=== PATIENT | female | born 1975 | race Native Hawaiian/Other Pacific Islander ===

== ENCOUNTER 2022-04-24 11:21 | Emergency (ER) | payer BC, SELFPAY ==
[2022-04-24 11:37] VITALS: BP 127/87; PULSE 106; RESP 16; TEMP 36.3; O2SAT 98
--- NOTE | 2022-04-24 12:10 | W.ED.EYEPROB ---
HPI - Eye Problem General: Chief complaint: Eye Problems Stated complaint: left eye injury Time Seen by Provider: 04/24/22 12:10 History of Present Illness: Ms. Daniel is a 46-year-old lady without significant past medical history presenting to the emergency department due to eye concern. She noticed red eye busted blood vessel on the bottom part of her eye yesterday and subsequently has developed right eye clear watering and drainage. She attempted covering her eye however is now developed left eye pain as well. Notes worse symptoms with light exposure. Also endorses worse right eye pain with light in the left eye. Associated nausea but no vomiting. Denies history of migraine headaches. Denies any known trauma or history of similar. No other specific changes in health, exacerbating, or alleviating factors identified. Onset (ago): day(s) Onset description: sudden Duration: constant Location: right eye Eye Symptoms: redness, pain and photophobia Mechanism: none Severity: severe Associated symptoms: Reports nausea Review of Systems General: Reports: 10 or more systems reviewed and unremarkable except in HPI and below GI: Reports: nausea PFSH ED PFSH: Medical History Diabetes Surgical History No significant past surgical history Physical Exam Const: COMMON NORMALS: alert GENERAL APPEARANCE: cooperative and well developed HENMT: COMMON NORMALS: normocephalic and atraumatic HEAD & SCALP: normocephalic and atraumatic Eye: SCLERA: sclerae normal OTHER: Eye conjunctival injection. Abrasion noted to the cornea somewhat linear in nature roughly at the 7 o'clock position relative to the pupil. IOP OS 12 OD 10 Neck/C-Spine: COMMON NORMALS: supple GENERAL: Yes trachea midline Resp: COMMON NORMALS: clear to auscultation bilaterally EFFORT & INSPECTION: Yes able to speak in complete sentences AUSCULTATION: clear to auscultation bilaterally Cardio: COMMON NORMALS: regular rate and regular rhythm RATE: regular rate RHYTHM: regular rhythm GI: COMMON NORMALS: Soft to palpation PALPATION: Yes Soft to palpation and No Tenderness to palpation present (GI) Extremity: GENERAL: Yes normal exam except as noted and No edema Neuro: COMMON NORMALS: moves all extremities SENSORIUM/ORIENTATION: Yes alert and No Orientation impaired Psych: COMMON NORMALS: mental status grossly normal and Normal thought process present MOOD & AFFECT: Yes anxious THOUGHT PROCESS: Normal thought process present Course Vital Signs: Vital signs: Vital Signs Temperature 97.3 F L 04/24/22 11:37 Pulse Rate 106 H 04/24/22 11:37 Respiratory Rate 16 04/24/22 13:52 Blood Pressure 127/87 04/24/22 11:37 Pulse Oximetry 98 04/24/22 11:37 MDM - Eye Problem Medical Decision Making 46-year-old lady presenting to the emergency department for concern. Exam as noted upon pressures, evidence of diffuse subconjunctival injection with localized conjunctival hemorrhage, given consensual photophobia there is likely evidence for anterior uveitis in addition to a corneal abrasion. I do not see evidence of acute ocular emergency requiring immediate ophthalmologic intervention or inpatient management. Discussed case with ophthalmology on-call and patient will be instructed to follow-up tomorrow. Upon reassessment patient is improved. Eyedrops instilled. The results of ED evaluation were discussed with the patient including prescriptions and/or symptomatic cares (if applicable) including appropriate and responsible use, followup plan, and return precautions. The patient verbalized understanding and felt safe for discharge. Medical Records I reviewed the patient's medical records. Lab Data I reviewed the patient's lab results. Discharge Plan Discharge Patient Disposition: Home Clinical Impression: Corneal abrasion, Anterior uveitis Condition: Stable Prescriptions: New Maxitrol 3.5mg/mL-10,000 unit/mL-0.1 % drops,suspension 2 drp ophthalmic (eye) Q4H Qty: 5 0RF Cyclogyl 1 % drops 1 drp ophthalmic (eye) TID Qty: 2 0RF Rx Instructions: compress lacrimal sac for 1-2 minutes after instillation oxycodone 5 mg tablet 5 mg PO Q4H PRN (Reason: pain) Qty: 10 0RF Discharge Orders: Discharge ED (Routine); Ordered 04/24/22 Ordered By: Alex Martin Referrals: Kiran Hartman MD [Primary Care Provider] - Discharge Diet: Usual diet Discharge Activity: Increase activity as tolerated Patient Instructions: Iritis (ED), Corneal Abrasion (ED), Opioid Safety, Pain Management Activity Restrictions/Additional Instructions: Thank you for visiting the emergency department. You were seen evaluated for eye pain. The most likely cause of your symptoms is related to corneal abrasion and uveitis. This will be treated with topical eyedrops. I will also prescribe oxycodone for uncontrolled pain. Please use this cautiously. Please call [facility] in the morning for follow-up. Return to the emergency department for uncontrolled symptoms or anything else that you are concerned about a feel needs emergency department evaluation. Coding Level of Care Code ED Student Services Counselor for Luz Davalos Exam Comprehensive
[2022-04-24] MEDS: fluorescein 1 mg Strip EYE-LEFT (12:50)
[2022-04-24] MEDS: tetracaine 0.5% Op Soln 4 mL Btl 1 DROP EYE-BOTH (12:50)
[2022-04-24 13:52] VITALS: RESP 16
[2022-04-24] MEDS: oxyCODONE 5 mg IR Tab/Cap PO (13:52)
[2022-04-24] MEDS: cyclopentolate 1% Op Soln 2 mL Btl 1 DROP EYE-RIGHT (13:53)
[2022-04-24] MEDS: neomycin-poly-dex Op 5 mL Btl 2 DROP EYE-RIGHT (13:54)
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
== END 2022-04-24 13:55 | disposition home or self-care (01) ==
PROVIDERS: Emergency Provider Emergency Medicine; PCP Family Medicine
DX: S05.00XA Injury of conjunctiva and corneal abrasion without foreign body, unspecified eye, initial encounter (principal); X58.XXXA Exposure to other specified factors, initial encounter; H20.9 Unspecified iridocyclitis
CPT/HCPCS: 99283

== ENCOUNTER 2022-06-05 23:32 | Emergency (ER) | payer BC, SELFPAY ==
[2022-06-05 23:36] VITALS: BMI 23.0
[2022-06-05 23:44] VITALS: BP 140/91; PULSE 123; RESP 16; TEMP 37.1; O2SAT 97
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
[2022-06-05] MEDS: HYDROcodone-acetaminophen 5-325 mg Tablet 1 TAB PO (23:56)
== END 2022-06-06 00:53 | disposition home or self-care (01) ==
PROVIDERS: Emergency Provider Emergency Medicine; PCP Family Medicine
DX: S09.8XXA Other specified injuries of head, initial encounter (principal); E11.9 Type 2 diabetes mellitus without complications; Y04.2XXA Assault by strike against or bumped into by another person, initial encounter
CPT/HCPCS: 70450; 99284

== ENCOUNTER 2022-07-18 18:51 | Emergency (ER) | payer BC, OTHER, SELFPAY ==
[2022-07-18 18:56] VITALS: BP 116/75; PULSE 102; RESP 20; TEMP 36.6; O2SAT 97; BMI 22.1
--- NOTE | 2022-07-18 19:18 | USCV_ITS ---
Lashonda Daniel Age: 47 Gender: F : 1975 Exam Date: 07/18/2022 19:49 Ordering Phys: Drake Burton Technologist: ALKA Exam Location: [facility] [place] Indication: RIGHT calf and foot chronic pain x 1yr since dx neuropathy. No history of DVT per patient. HISTORY: RIGHT calf and foot chronic pain x 1yr since dx neuropathy. No history of DVT per patient. PROCEDURES: Venous duplex imaging was performed in only the right lower extremity. The following venous structures were evaluated: common femoral vein, profunda vein, proximal portion of the greater saphenous vein, superficial femoral vein, and the popliteal vein. FINDINGS: Normal 2-D Doppler and augmentation and compressibility throughout the lower extremity venous structures. Additional imaging through the proximal calf veins also reveals no thrombus. Limited evaluation of the greater saphenous vein is patent with no thrombus. CONCLUSIONS No DVT right lower extremity. Dr. Beba Adams DO (Electronically Signed) Final Date: 19 July 2022 07:59 S
--- NOTE | 2022-07-18 19:19 | W.ED.EXTPRO ---
HPI - Extremity Problem General: Chief complaint: Extremity Problem,Nontraumatic Stated complaint: Rt Side Back Of Thigh\Pain Time Seen by Provider: 07/18/22 19:04 History of Present Illness: Patient is a 47-year-old female who comes to the ED with lower extremity pain. Symptoms started approximately week ago. She states that she got out of bed suddenly and then felt a sharp pain in her right leg. She rates the pain an 8 out of 10. Pain is in the back of right thigh and down into right calf. Denies any other fall or trauma to cause injury. Pain has not gotten any better over the past week and is only getting worse. Denies any chest pain, shortness of breath or hemoptysis. Associated symptoms: Deny chest pain, fever(s) or rash Review of Systems Const: Denies: fever(s), chills or fatigue Eyes: Denies: change in vision or eye discomfort ENMT: Denies: throat pain, odynophagia, nasal discharge or nasal congestion Card: Denies: chest pain, palpitations, edema, swelling of feet/ankles, dyspnea on exertion or orthopnea Resp: Denies: dyspnea, productive cough or non-productive cough GI: Denies: abdominal pain, nausea, vomiting, diarrhea, constipation or hematochezia : Denies: flank pain, dysuria or hematuria Musc: Reports: extremity pain (Right leg); Denies: neck pain, back pain or extremity swelling Skin/Breast: Denies: rash or new lesions Neuro: Denies: headache(s), numbness in extremities or weakness in extremities FORMERLY [facility], [facility]1983 ED PFSH: Medical History Diabetes Surgical History No significant past surgical history Physical Exam Const: COMMON NORMALS: patient oriented x3 and alert GENERAL APPEARANCE: cooperative HENMT: COMMON NORMALS: normocephalic HEAD & SCALP: normocephalic MOUTH: Normal oral and palatal mucosa present THROAT: posterior oropharynx normal and uvula midline Neck/C-Spine: COMMON NORMALS: supple GENERAL: Yes normal visual inspection Resp: COMMON NORMALS: normal respiratory effort, No retractions, No use of accessory muscles and clear to auscultation bilaterally AUSCULTATION: clear to auscultation bilaterally Cardio: COMMON NORMALS: regular rate, regular rhythm, S1 normal heart sound present, S2 normal heart sound present, No gallops present (Cardio), No clicks present (Cardio), No murmurs present (Cardio) and Peripheral pulses 2+ throughout RATE: regular rate RHYTHM: regular rhythm HEART SOUNDS: S1 normal heart sound present and S2 normal heart sound present PERIPHERAL PULSES: Peripheral pulses 2+ throughout GI: COMMON NORMALS: Normal to inspection, nondistended, normoactive bowel sounds present, Soft to palpation, non-tender and no masses PALPATION: Yes Soft to palpation : COMMON NORMALS: Yes no CVA tenderness BLADDER/KIDNEY EXAM: Yes no CVA tenderness Back/Pelvis: COMMON NORMALS: no CVA tenderness Extremity: COMMON NORMALS: normal to inspection and no pedal edema GENERAL: Yes calf tenderness (Right calf tenderness) Neuro: COMMON NORMALS: patient oriented x3 SENSORIUM/ORIENTATION: Yes alert GAIT: Yes Normal gait present Skin: GENERAL SKIN EXAM: dry skin Course Vital Signs: Vital signs: Vital Signs Temperature 98.0 F 07/18/22 21:43 Pulse Rate 89 07/18/22 21:43 Respiratory Rate 17 07/18/22 21:43 Blood Pressure 123/84 07/18/22 21:43 Pulse Oximetry 98 07/18/22 21:43 Oxygen Delivery Me thod 07/18/22 21:43 MDM - Extremity (Nontraumatic) Medical Decision Making Patient is a 47-year-old female who comes to the ED with lower extremity pain. Symptoms started approximately week ago. She states that she got out of bed suddenly and then felt a sharp pain in her right leg. She rates the pain an 8 out of 10. Pain is in the back of right thigh and down into right calf. Denies any other fall or trauma to cause injury. Pain has not gotten any better over the past week and is only getting worse. Denies any chest pain, shortness of breath or hemoptysis. Vital stable. Patient appears nontoxic and in no acute distress. She has some right calf tenderness to palpation. Rest of exam is benign. Ultrasound venous duplex of right lower extremity showed no DVTs or blood clots seen. Patient was given a dose of pain meds here in the ED to help with symptoms. She was diagnosed with musculoskeletal leg pain and was stable for discharge home. She has an appointment with Dr. Hartman tomorrow for follow-up. Return ED precautions given. Patient understood and agreed with plan. Discharge Plan Discharge Patient Disposition: Home Clinical Impression: Musculoskeletal leg pain Qualifiers: Laterality: right Qualified Code(s): M79.604 - Pain in right leg Condition: Stable Prescriptions: No Action Maxitrol 3.5mg/mL-10,000 unit/mL-0.1 % drops,suspension 2 drp ophthalmic (eye) Q4H Qty: 5 0RF Cyclogyl 1 % drops 1 drp ophthalmic (eye) TID Qty: 2 0RF Rx Instructions: compress lacrimal sac for 1-2 minutes after instillation oxycodone 5 mg tablet 5 mg PO Q4H PRN (Reason: pain) Qty: 10 0RF Discharge Orders: Discharge ED (Routine); Ordered 07/18/22 Ordered By: Drake Burton Referrals: Kiran Hartman MD [Primary Care Provider] - Discharge Diet: Regular Discharge Activity: Increase activity as tolerated Activity Restrictions/Additional Instructions: Follow-up with Dr. Hartman at your appointment tomorrow. Return to the ER or your medical provider if condition worsens. Please read and understand discharge instructions. Thank you for choosing [facility] for your healthcare needs today. Please realize this is an emergency room and that we are providing you with a medical screening exam and this may not be complete and all inclusive of all the testing and or work up that you may need to determine your ailment or severity of your illness. It is very important that you follow up as instructed or that you return to the Emergency Department should you have concerns or if your condition changes or worsens in any way. Coding Level of Care Code ED Spanish Literature Professor for Luz Davalos
[2022-07-18] MEDS: HYDROcodone-acetaminophen 7.5-325 mg Tablet 1 TAB PO (19:30)
[2022-07-18] MEDS: orphenadrine 30 mg/mL Inj 2 mL 60 MG IM (19:30)
[2022-07-18] MEDS: ketorolac 60 mg/2 mL INJ IM (21:42)
[2022-07-18 21:43] VITALS: BP 123/84; PULSE 89; RESP 17; TEMP 36.7; O2SAT 98
== END 2022-07-18 21:41 | disposition home or self-care (01) ==
PROVIDERS: Emergency Provider Physician Assistant; PCP Family Medicine
DX: M79.651 Pain in right thigh (principal); M79.604 Pain in right leg
CPT/HCPCS: 93971; 96372; 99284; J1885; J2360

== ENCOUNTER 2022-11-02 19:13 | Emergency (ER) | payer BC, OTHER, SELFPAY ==
[2022-11-02 19:23] VITALS: BP 123/85; PULSE 101; RESP 17; TEMP 36.8; O2SAT 95; BMI 22.4
--- NOTE | 2022-11-02 19:33 | ECG_ITS ---
[facility] Test Date: 2022-11-02 Pat Name: Lashonda Daniel Department: Room: Gender: Female [employer]: : 1975 Requested By: Suraj Watts Order Number: [id number] [place] MD: Kimberli Mercer M.D. Measurements Intervals [place] Rate: 97 P: 54 NH: 153 QRS: -1 QRSD: 85 T: 54 QT: 369 QTc: 469 Interpretive Statements SINUS RHYTHM POSSIBLE LEFT ATRIAL ENLARGEMENT [-0.1mV P-WAVE IN V1/V2] No previous ECG available for comparison Electronically Signed On 11-03-2022 13:01:20 CDT by Kimberli Mercer M.D. [email or web address]
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
--- NOTE | 2022-11-02 20:26 | XRR_ITS ---
PROCEDURE INFORMATION: Exam: XR Left Shoulder Exam date and time: 11/02/2022 8:32 PM Age: 47 years old Clinical indication: Pain; Shoulder; Left; Additional info: Left shoulder pain TECHNIQUE: Imaging protocol: Radiologic exam of the left shoulder. Views: 2 or more views. COMPARISON: CR XR chest 1V [id number] 02/25/2019 8:24 PM FINDINGS: Bones/joints: The glenohumeral joint is intact. The acromioclavicular joint is intact. No acute fracture or other acute osseous abnormality. Soft tissues: The soft tissues are unremarkable as demonstrated. XR/XR shoulder LT min 2V* [id number] IMPRESSION: No acute abnormality demonstrated.
[2022-11-02 20:47] VITALS: BP 127/87; PULSE 93; RESP 18; O2SAT 99
[2022-11-02 20:49] VITALS: RESP 18; O2SAT 99
[2022-11-02] MEDS: morphine 4 mg/mL SDV 1 mL IM (20:49)
[2022-11-02] MEDS: ketorolac 60 mg/2 mL INJ IM (22:31)
[2022-11-02 22:40] VITALS: BP 122/85; PULSE 80; RESP 16; O2SAT 99
== END 2022-11-02 22:43 | disposition home or self-care (01) ==
PROVIDERS: Emergency Provider Family Medicine; PCP Family Medicine
DX: S43.402A Unspecified sprain of left shoulder joint, initial encounter (principal); X50.1XXA Overexertion from prolonged static or awkward postures, initial encounter
CPT/HCPCS: 73030; 93005; 96372; 99284; J1885; J2270

== ENCOUNTER 2022-12-27 09:17 | Outpatient (CLI) | payer BC, SELFPAY ==
--- NOTE | 2022-12-27 09:30 | MR_ITS ---
WS: [id number] MRI LEFT SHOULDER NONCONTRAST TECHNIQUE: Sagittal T2, coronal T1, T2 and proton density imaging. Axial gradient PDE imaging. CLINICAL INFORMATION: L SHOULDER PAIN COMPARISON: None. FINDINGS: Moderate degenerative arthritis AC joint with downsloping the acromion. Slight subacromial spurring w ith impingement distal supraspinatus. Trace subacromial fluid. Tendinopathy distal infraspinatus. Chronic thinning of the distal supraspinatus. Tiny insertional tea r infraspinatus with tendinopathy. Normal teres minor. Subscapularis appears intact. Biceps tendon appears intact within the bicipital g roove. Advanced degenerative narrowing of the glenohumeral articulation. This is somewhat advanced fo r a patient this age with subchondral cystic change. Mild degenerative fraying of the glenoid labrum. Normal bone marrow signal in the humerus and glenoid. Intra-articular biceps tendon appears intact. Biceps labral anchor appears intact. IMPRESSION: 1. Moderate degenerative arthritis AC joint with mild edema. Moderate downsloping the acromion with impingement distal supraspinatus. 2. Tendinopathy of the distal supraspinatus and infraspinatus. 3. Tiny insertional tear infraspinatus. 4. Rotator cuff is otherwise intact. 5. Biceps tendon appears intact within the bicipital groove. Normal intra-articular biceps tendon. 6. Moderate degenerative arthritis glenohumeral articulation advanced for patient this age with subc hondral cystic change.
== END 2022-12-27 09:18 | disposition home or self-care (01) ==
LOC: RAD 09:19
PROVIDERS: PCP Family Medicine; Visit Provider Family Medicine
DX: M19.012 Primary osteoarthritis, left shoulder (principal); M25.512 Pain in left shoulder
CPT/HCPCS: 73221

== ENCOUNTER 2023-09-17 12:14 | Emergency (ER) | payer BC, SELFPAY ==
[2023-09-17 12:30] VITALS: BP 111/73; PULSE 109; RESP 18; TEMP 36.6; O2SAT 98
[2023-09-17 14:20] VITALS: BP 106/79; PULSE 104; RESP 16; O2SAT 98
--- NOTE | 2023-09-17 14:38 | ED_ITS ---
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 States she has burning in both her feet. She was seen at an urgent care was given Toradol but states it does not help she has been taking her gabapentin states she needs something stronger for leaf she rates the pain a 9 out of 10 she denies any back pain denies any swelling or fevers or redness. Associated symptoms: Deny chest pain, fever(s) or rash Review of Systems 2 Const: Denies: fever(s), chills, body aches or change in appetite ENMT: Denies: throat pain or dental pain Card: Denies: chest pain Resp: Denies: dyspnea GI: Denies: abdominal pain, nausea, vomiting or diarrhea Musc: Reports: extremity pain; Denies: neck pain or back pain Skin/Breast: Denies: rash PFSH ED 2 PFSH: Medical History Diabetes Surgical History No significant past surgical history Social History Substance/Drug Use: never Physical Exam 2 Const: COMMON NORMALS: no acute distress, patient oriented x3 and healthy appearing HENMT: COMMON NORMALS: normocephalic and atraumatic HEAD & SCALP: n ormocephalic and atraumatic Eye: COMMON NORMALS: Equal, round and reactive pupils present and EOMs intact bilaterally PUPIL: Yes Equal, round and reactive pupils present Neck/C-Spine: COMMON NORMALS: full ROM Chest: COMMONS NORMALS: normal inspection of the chest Resp: COMMON NORMALS: normal respiratory effort Extremity: COMMON NORMALS: normal to inspection and full ROM NARRATIVE EXTREMITY EXAM: Tenderness in both feet legs no warmth to touch no swelling distal pulses intact Neuro: COMMON NORMALS: patient oriented x3, moves all extremities and no focal motor deficits Psych: COMMON NORMALS: mental status grossly normal, Normal thought process present and cooperative THOUGHT PROCESS: Normal thought process present Skin: COMMON NORMALS: no rashes or lesions noted and no wounds GENERAL SKIN EXAM: no rashes or lesions noted Course 2 Vital Signs: Vital signs: Vital Signs Temperature 98 F 09/17/23 12:30 Pulse Rate 94 09/17/23 16:47 Respiratory Rate 16 09/17/23 16:47 Blood Pressure 102/69 09/17/23 16:47 Pulse Oximetry 100 09/17/23 16:47 Oxygen Delivery Me thod Room Air 09/17/23 12:30 MDM - Extremity (Nontraumatic) Medical Decision Making Patient presents with leg pain is acute on chronic likely from her neuropathy exam here is benign she is stable for discharge we will place her on some hydrocodone she is return if worsening she understands agrees to plan Medical Records I reviewed the patient's medical records. Lab Data I reviewed the patient's lab results. 09/17/23 14:48 09/17/23 14:48 Laboratory Results WBC 8.60 10^3/uL (3.29-11.43) 09/17/23 14:48 RBC 4.50 10^6/uL (3.85-5.65) 09/17/23 14:48 Hgb 13.80 g/dL (11.27-16.99) 09/17/23 14:48 Hct 40.7 % (36-47) 09/17/23 14:48 MCV 90.4 fl (85-98) 09/17/23 14:48 MCH 30.7 pg (27-33) 09/17/23 14:48 MCHC 33.9 g/dL (30-55) 09/17/23 14:48 RDW 11.8 % (12.1-15.1) L 09/17/23 14:48 Plt Count 261 10^3/cmm (157-399) 09/17/23 14:48 MPV 10.3 fL (7.4-10.4) 09/17/23 14:48 Neut % (Auto) 63.7 % 09/17/23 14:48 Lymph % (Auto) 29.7 % 09/17/23 14:48 [place] % (Auto) 4.3 % 09/17/23 14:48 Eos % (Auto) 1.4 % 09/17/23 14:48 Baso % (Auto) 0.6 % 09/17/23 14:48 Neut # (Auto) 5.48 10^3/uL (1.8-7.7) 09/17/23 14:48 Lymph # (Auto) 2.6 10^3/uL (0.8-4.8) 09/17/23 14:48 [place] # (Auto) 0.4 10^3/uL (0.2-0.9) 09/17/23 14:48 Eos # (Auto) 0.1 10^3/uL (0.0-0.8) 09/17/23 14:48 Baso # (Auto) 0.1 10^3/uL (0.0-0.1) 09/17/23 14:48 Nucleated RBC % (auto) 0 % 09/17/23 14:48 Nucleated RBCs # 0.0 /100WBC 09/17/23 14:48 Sodium 133 mmol/L (136-145) L 09/17/23 14:48 Potassium 4.1 mmol/L (3.5-5.1) 09/17/23 14:48 Chloride 93 mmol/L (98-107) L 09/17/23 14:48 Carbon Dioxide 28 mmol/L (22-29) 09/17/23 14:48 Anion Gap 16.1 (5-19) 09/17/23 14:48 BUN 8 mg/dL (6-20) 09/17/23 14:48 Creatinine 0.5 mg/dL (0.5-0.9) 09/17/23 14:48 GFR Calculation 131.7 mL/min (90-130) H 09/17/23 14:48 Glucose 495 mg/dL (65-115) H 09/17/23 14:48 POC Glucose 282 mg/dL (70-110) H 09/17/23 16:46 Calculated Osmolality 296 mOsm/kg (285-295) H 09/17/23 14:48 Calcium 9.5 mg/dL (8.5-10.5) 09/17/23 14:48 Total Bilirubin 0.4 mg/dL (0.15-1.2) 09/17/23 14:48 AST 12 U/L (0-32) 09/17/23 14:48 ALT 13 U/L (0-33) 09/17/23 14:48 Alkaline Phosphatase 93 U/L (35-105) 09/17/23 14:48 Total Protein 7.4 g/dL (6.6-8.7) 09/17/23 14:48 Albumin 3.9 g/dL (3.5-5.2) 09/17/23 14:48 Globulin 3.5 g/dL (1.3-4.6) 09/17/23 14:48 No radiology studies performed this visit Discharge Plan Discharge Patient Disposition: Home Clinical Impression: Leg pain, Hyperglycemia Condition: Stable Prescriptions: New hydrocodone-acetaminophen 5-325 mg tablet 1 tab PO Q6H PRN (Reason: pain) Qty: 14 0RF No Action hydrocodone-acetaminophen 5-325 mg tablet 1 tab PO Q6H PRN (Reason: pain) Qty: 20 0RF cyclobenzaprine 10 mg tablet 10 mg PO BID PRN (Reason: Pain) gabapentin 300 mg capsule 900 mg PO QID naproxen 500 mg Tablet 500 mg PO BID PRN (Reason: Pain) escitalopram oxalate 20 mg tablet 20 mg PO DAILY melatonin 10 mg Tablet 10 mg PO BEDTIME Jardiance 25 mg tablet 25 mg PO DAILY Discharge Orders: Discharge ED (Routine); Ordered 09/17/23 Ordered By: Deanna Hamilton Referrals: Kiran Hartman MD [Primary Care Provider] - 4-7 days Discharge Diet: Advance as tolerated Discharge Activity: Resume usual activity Patient Instructions: Diabetic Neuropathy (ED), Leg Pain (ED) Coding Level of Care Code ED Repair Operator for Luz Davalos
[2023-09-17] MEDS: ondansetron 2 mg/ML SDV 2 mL 4 MG IVP (14:47)
[2023-09-17] MEDS: HYDROmorphone 1 mg/mL INJ 1 mL IVP (14:48)
[2023-09-17] MEDS: dexamethasone 10 mg/mL INJ IVP (14:49)
[2023-09-17 15:00] LABS: Basophils # 0.1 10^3/uL (0.0-0.1); Basophils % 0.6 %; Eosinophils # 0.1 10^3/uL (0.0-0.8); Eosinophils % 1.4 %; Hematocrit 40.7 % (36-47); Lymphocytes # 2.6 10^3/uL (0.8-4.8); Lymphocytes % 29.7 %; Mean Corpuscular HGB Conc 33.9 g/dL (30-55); Mean Corpuscular Hemoglobin 30.7 pg (27-33); Mean Corpuscular Volume 90.4 fl (85-98); Mean Platelet Volume 10.3 fL (7.4-10.4); Monocytes # 0.4 10^3/uL (0.2-0.9); Monocytes % 4.3 %; Neutrophils # 5.48 10^3/uL (1.8-7.7); Neutrophils % 63.7 %; Nucleated Red Blood Cells % 0 %; Platelet Count 261 10^3/cmm (157-399); Red Cell Distribution Width 11.8 % (12.1-15.1)
[2023-09-17 15:24] LABS: Alanine Aminotransferase 13 U/L (0-33); Albumin Level 3.9 g/dL (3.5-5.2); Alkaline Phosphatase 93 U/L (35-105); Anion Gap 16.1 (5-19); Aspartate Amino Transferase 12 U/L (0-32); Blood Urea Nitrogen 8 mg/dL (6-20); Calcium 9.5 mg/dL (8.5-10.5); Carbon Dioxide 28 mmol/L (22-29); Chloride 93 mmol/L (98-107); Globulin 3.5 g/dL (1.3-4.6); Glomerular Filtration Rate 131.7 mL/min (90-130); Glucose 495 mg/dL (65-115); Osmolality Calculated 296 mOsm/kg (285-295); Potassium 4.1 mmol/L (3.5-5.1); Sodium 133 mmol/L (136-145); Total Bilirubin 0.4 mg/dL (0.15-1.2); Total Protein 7.4 g/dL (6.6-8.7)
[2023-09-17] MEDS: insulin regular-human 100 units/1 mL 10 UNIT IVP (15:59)
[2023-09-17] MEDS: sodium chloride 0.9% 1,000 ML 999 ML IV (15:59)
[2023-09-17 16:47] VITALS: BP 102/69; PULSE 94; RESP 16; O2SAT 100
[2023-09-17 16:50] LABS: Glucose Point of Care 282 mg/dL (70-110)
[2023-09-17 17:28] VITALS: BP 117/72; PULSE 92; RESP 16; O2SAT 100
== END 2023-09-17 17:29 | disposition home or self-care (01) ==
PROVIDERS: Emergency Provider Emergency Medicine; PCP Family Medicine
DX: E11.65 Type 2 diabetes mellitus with hyperglycemia (principal); E11.42 Type 2 diabetes mellitus with diabetic polyneuropathy
CPT/HCPCS: 36416; 80053; 82962; 85025; 96361; 96374; 96375; 99284; J1100; J1170; J1815; J2405; J7030

== ENCOUNTER → 2023-11-02 14:40 | Outpatient (BNVA) | payer BC, SELFPAY | PROVIDERS: PCP Family Medicine; Visit Provider Podiatrist Foot & Ankle Surgery | DX: M79.671 Pain in right foot (principal); M79.672 Pain in left foot; G57.61 Lesion of plantar nerve, right lower limb; M21.619 Bunion of unspecified foot; E11.42 Type 2 diabetes mellitus with diabetic polyneuropathy | CPT/HCPCS: 73630 ==

== ENCOUNTER 2023-12-01 09:30 | Outpatient (CLI) | payer BC, SELFPAY ==
--- NOTE | 2023-12-01 09:30 | MR_ITS ---
WS: [id number] EXAMINATION: MR foot RT wo con* [id number] ORDER DATE: 12/01/2023 9:22 AM COMPARISON: None. HISTORY: evaluate for mortons neuroma CONTRAST: None. TECHNIQUE: Sagittal T1, sagittal STIR, coronal PD, coronal T2, axial T1, axial T2, and axial PD imagi ng with fat saturation technique. FINDINGS: Pes planus. Hallux valgus. Normal bone marrow signal in the metatarsals. Normal visualized tarsal bones. Normal bone marrow signal in the great toe. Medial sesamoid in the area of pain at the head of the first metatarsal. Trace surrounding edema. Normal bone marrow signal in the sesamoid. Mil d degenerative arthritis of the first MTP with trace fluid No definite visualized Gandara's neuroma in the area of concern. No evidence of underlying mass or lesion. MR/MR foot RT wo con* [id number] IMPRESSION: 1. Pes planus with hallux valgus. 2. Normal bone marrow signal in the great toe. Normal bone marrow signal in th e first metatarsal, proximal phalanx and distal phalanx. 3. No visualized plantar mass or lesion. No visualized Gandara's neuroma in the area of the great toe. 4. Pain is located in the area of the sesamoid. Normal bone marrow signal in t he sesamoid with trace surrounding edema. Correlation for sesamoiditis. 5. Mild degenerative arthritis of the first MTP with trace fluid. 6. No other acute findings.
== END 2023-12-01 09:31 | disposition home or self-care (01) ==
PROVIDERS: PCP Family Medicine; Visit Provider Podiatrist Foot & Ankle Surgery
DX: G57.61 Lesion of plantar nerve, right lower limb (principal); M21.41 Flat foot [pes planus] (acquired), right foot; M20.11 Hallux valgus (acquired), right foot; M25.871 Other specified joint disorders, right ankle and foot; M19.071 Primary osteoarthritis, right ankle and foot
CPT/HCPCS: 73718

== ENCOUNTER 2024-07-24 14:19 | Outpatient (CLI) | payer BC, SELFPAY ==
--- NOTE | 2024-07-24 14:21 | MM_ITS ---
WS: [id number] BILATERAL 3D TOMOSYNTHESIS DIGITAL SCREENING MAMMOGRAPHY WITH CAD CLINICAL INFORMATION: SCREENING HISTORY: Screening mammogram. No current complaints. COMPARISON: Baseline TECHNIQUE: Bilateral CC and MLO views. FINDINGS: Scattered fibroglandular densities bilaterally. A few secretory calcifications RIGHT breast. Somewhat nodular dense breast tissue LEFT breast. A few enlarged RIGHT axillary lymph nodes the largest measuring up to 1.5 cm. Recommend further evaluation with ultrasound considering no comparisons. MM/MM [facility] tomosynthesis [id number] IMPRESSION: DENSITY: There are scattered areas of fibroglandular density. BI-RADS: 0 - Incomplete: Need additional imaging evaluation. FOLLOW UP: Need Additional Imaging Recommend RIGHT axillary ultrasound to evaluate the enlarged lymph nodes
== END 2024-07-24 14:20 | disposition home or self-care (01) ==
PROVIDERS: PCP Physician Assistant; Visit Provider Physician Assistant
DX: Z12.31 Encounter for screening mammogram for malignant neoplasm of breast (principal); R92.323 Mammographic fibroglandular density, bilateral breasts; R92.1 Mammographic calcification found on diagnostic imaging of breast; N63.20 Unspecified lump in the left breast, unspecified quadrant; R59.0 Localized enlarged lymph nodes
CPT/HCPCS: 77063; 77067

== ENCOUNTER 2024-08-12 07:35 | Outpatient (CLI) | payer BC, SELFPAY ==
--- NOTE | 2024-08-12 07:44 | US_ITS ---
WS: [id number] ULTRASOUND BREAST RIGHT TECHNIQUE: Ultrasound right breast focused area of concern. CLINICAL INFORMATION: R AXILLARY LYMPHADENOPATHY COMPARISON: 07/24/2024 FINDINGS: No suspicious enlarged lymph nodes today. No acute findings. US/US breast RT limited* [id number] IMPRESSION: No suspicious findings today
== END 2024-08-12 07:36 | disposition home or self-care (01) ==
LOC: RAD 07:36
PROVIDERS: PCP Physician Assistant; Visit Provider Physician Assistant
DX: R59.0 Localized enlarged lymph nodes (principal)
CPT/HCPCS: 76642; 76882

== ENCOUNTER 2024-11-21 09:08 | Outpatient (CLI) | payer BC, SELFPAY ==
--- NOTE | 2024-11-21 09:23 | MR_ITS ---
WS: [id number] MRI LEFT SHOULDER HISTORY: CHRONIC LEFT SHOULDER PAIN, history of prior rotator cuff surgery and biceps tendon reattachment. COMPARISON: 12/27/2022, shoulder radiograph 11/02/2022 TECHNIQUE: Multiplanar sequences of the shoulder joint are submitted. Progression of AC joint arthropathy with edema. There is edema through the AC joint with mild hypertrophic bone formation. Minimal subacromial impingement. Small amount of fluid in the subdeltoid bursa. No os acromion. Micrometallic artifacts noted in the soft tissue from prior rotator cuff surgery. Small caliber biceps tendon in the bicipital groove. There is partial subluxation of the biceps tendon. Biceps tendon has decreased in caliber since the prior exam but no tear. Minimal narrowing of the glenohumeral joint. No rotator cuff muscle atrophy. There is a single anchor noted in the distal supraspinatus tendon from prior repair. There is thickening and increased signal in the distal supraspinatus tendon secondary to tendinopathy. No retear identified. Marked thickening and increased signal in the subscapularis tendon. Narrowing of the coracohumeral interval. Infraspinatus tendon is intact. Very slightly globular appearance of the anterior labrum. Intrasubstance degeneration of the superior labrum. No definite tear identified. There is increased fluid and inflammation adjacent to the distal subscapularis tendon along the humeral head. Variable signal centrally within the edema. Suspect there may be a small intra-articular body present. MR/MR shoulder LT wo con* [id number] IMPRESSION: 1. Progression of AC joint arthropathy. 2. Mild subacromial impingement. 3. Surgical repair with anchor replacement of the distal supraspinatus tendon. There is thickening and increased signal in the distal supraspinatus tendon fr om tendinopathy. Tendinopathy is closely associated with the repair site. 4. Moderate tendinopathy in the subscapularis tendon. 5. Very small caliber biceps tendon in the bicipital groove with partial sublu xation. 6. Increased T2 signal adjacent to the distal subscapularis tendon. There is i ntermediate signal within the fluid suggesting there may be an intra-articular body or fragment.
== END 2024-11-21 09:09 | disposition home or self-care (01) ==
LOC: RAD 09:12
PROVIDERS: PCP Physician Assistant; Visit Provider Orthopaedic Surgery
DX: M19.012 Primary osteoarthritis, left shoulder (principal); M75.42 Impingement syndrome of left shoulder; Z98.890 Other specified postprocedural states
CPT/HCPCS: 73221